=== PATIENT | female | born 1995 | race African-American/Black ===

== ENCOUNTER 2016-09-08 21:43 | Emergency (ER) ==
[2016-09-08] MEDS ORDERED: BENADRYL ONE (21:59)
[2016-09-08] MEDS ORDERED: DECADRON IV ONE (22:16)
[2016-09-08] MEDS ORDERED: BENADRYL IV ONE (22:16)
[2016-09-08] MEDS ORDERED: SODIUM CHLORIDE 0.9% INJ ONE (22:16)
[2016-09-08] MEDS ORDERED: PEPCID IV ONE (22:16)
[2016-09-08] MEDS ORDERED: NS 1,000 ML IV ONE (22:17)
[2016-09-08] MEDS ORDERED: EPINEPHRINE IM ONE (22:17)
--- NOTE | 2016-09-08 22:20 | PROVIDER DOCUMENTATION ---
HPI-Rash/Wound/ReCheck - General Chief Complaint: Allergic Reaction Stated Complaint: ALLERGIC REACTION/RASH Time Seen by Provider: 09/08/16 22:01 Source: patient Allergies/Adverse Reactions: Allergies Allergy/AdvReac Type Severity Reaction Status Date / Time No Known Allergies Allergy Verified 09/08/16 21:52 Home Medications: Home Medication List Medication Instructions Recorded Confirmed Last Taken Type Hydrocortisone 1% Cream 1 applicatn TOP BID #1 tube 06/16/16 Unknown Rx Famotidine [Pepcid] 20 mg PO BID #10 tablet 09/08/16 Unknown Rx Prednisone 20 mg PO BID #10 tablet 09/08/16 Unknown Rx - History of Present Illness-Dermatology Nature of Presenting Problem: PT IS A 20YOF PRESENTING TO THE ED C/O ALLERGIC REACTION. 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 PT DENIES ANY AIRWAY COMPROMISE OR SWELLING AT THIS TIME. UNKNOWN CAUSE OF REACTION Location: reports: generalized Quality: reports: itchy Severity: reports: moderate Onset/Duration: reports: just prior to arrival Timing: reports: still present Context/Associated Symptoms: reports: change in skin texture, hives, rash, other (ITCHING ALL OVER). denies: insect bite/sting, unknown bite/sting, nasal congestion Identifiable cause?: No Exposure: reports: unknown cause Modifying Factors: improves with: scratching Locality of Occurance: Home Similar Symptoms Previously?: No Recently seen or treated by another doctor?: No Review of Systems - Adult - REVIEW OF SYSTEMS - ADULT Constitutional: reports: no symptoms reported Eyes: reports: no symptoms reported Ears, Nose, Mouth & Throat: reports: no symptoms reported Cardiovascular: reports: no symptoms reported Respiratory: reports: no symptoms reported Gastrointestinal: reports: no symptoms reported Genitourinary: reports: no symptoms reported Musculoskeletal: reports: no symptoms reported Integumentary: reports: see HPI, hives, itching, rash. denies: skin thickening Neurological: reports: no symptoms reported Psychiatric: reports: no symptoms reported Endocrine: reports: no symptoms reported Hematologic/Lymphatic: reports: no symptoms reported Allergic/Immunologic: reports: see HPI, allergic reactions, hives, urticaria. denies: frequent infections All Other Systems: Reviewed and Negative Past History - Adult - PAST MEDICAL HISTORY-ADULT Review of Records: reports: Old Records Reviewed, Nursing Assessment Review, Medications Reviewed, Social history reviewed & non-contributory. Major Childhood Illnesses: reports: denies history Cardiovascular: reports: denies history Respiratory: reports: asthma Gastrointestinal: reports: ulcer Obstetrical/Gynecological: reports: denies history Genitourinary: reports: denies history Musculoskeletal: reports: denies history Neurological: reports: denies history Endocrine/Immune: reports: denies history Other Conditions: reports: denies history - PRIOR SURGERIES/PROCEDURES Surgical/Procedure History: reports: none - IMMUNIZATION STATUS Childhood Immunizations: See Nurse Assessment Flu Vaccine: See Nurse Assessment - FAMILY HISTORY Family History: CAD over 55 yo, HTN - SOCIAL HISTORY Smoking: cigar (X2 PER DAY) Provider spent 3-5 mins advising pt. on dangers of tobacco.: Discussed manners to quit use, and f/u contacts for add'l counseling. Substance Use: none/never, denies Alcohol Use Frequency: never Living Situation: family Physical Exam-General - PHYSICAL EXAM-ADULT Initial Vital Signs Reviewed: Yes - CONSTITUTIONAL General Appearance: alert, moderate distress, anxious. negative: appears well, no apparent distress - EYES Eyes: PERRL/EOMI, pink conjunctivae, fundi clear, no AV nicking - HEAD, EARS, NOSE, MOUTH & THROAT HENMT: normocephalic/atraumatic, moist mucous membranes, normal ENT inspection, TMs normal, pharynx normal. negative: angioedema - NECK Neck: non-tender, full range of motion, supple, normal inspection - RESPIRATORY Respiratory: chest non-tender, lungs clear, normal breath sounds, no pleuratic chest pain, no respiratory distress, no accessory muscle use - CARDIOVASCULAR Cardiovascular: normal peripheral pulses, regular rate, rhythm, no edema, no gallop, no JVD, no murmur - GASTROINTESTINAL (ABDOMEN) Abdominal Exam: normal bowel sounds, non tender, soft, no organomegaly, no pulsatile mass. negative: abdominal bruit - LYMPHATIC Lymphatic: no adenopathy - MUSCULOSKELETAL Back Exam: normal inspection, no CVA tenderness, no vertebral tenderness Extremity: normal range of motion, non-tender, normal gait, normal inspection, no pedal edema, no calf tenderness, normal capillary refill, pelvis stable - SKIN Integumentary: normal turgor, warm/dry, erythema, rash, warm. 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, grossly normal, no motor/sensory deficits - PSYCHIATRIC Psych/Mental Status: normal thought content, normal thought process, oriented x 3, anxious Progress - PLAN OF CARE/RESULTS Progress/Plan/Lab Results: Orders Category Date Time Status 0.9% Sodium Chloride Inj [Ns] 1,000 ml Med 09/08/16 22:17 Active IV 999 mls/hr Dexamethasone [Decadron] Med 09/08/16 22:16 Discontinued 10 mg IV NOW ONE Diphenhydramine [Benadryl] Med 09/08/16 21:59 Discontinued 50 mg .ROUTE .STK-MED ONE Diphenhydramine [Benadryl] Med 09/08/16 22:16 Discontinued 50 mg IV NOW ONE Epinephrine Med 09/08/16 22:17 Discontinued 0.3 mg IM NOW ONE Famotidine [Pepcid] Med 09/08/16 22:16 Discontinued 20 mg IV NOW ONE Sodium Chloride 0.9% Med 09/08/16 22:16 Discontinued 5 - 10 ml INJ NOW ONE Vital Signs - 24 hr 09/08/16 21:46 Temperature 97.8 F Pulse Rate 104 H Respiratory 22 Rate Blood Pressure 168/102 O2 Sat by Pulse 100 Oximetry Departure - Departure Time of Disposition Order: 22:20 DIAGNOSIS: Allergic reaction, urticaria Disposition: HOME 01 Certified Medical Emergency: Emergent Condition: Stable Attestation - Scribe Verification/Attestation Scribe:: Lindsay Martínez Acting as Scribe for:: Shahid Parra Scribe documention review:: This chart was documented by a scribe and accurately reflects the service the provider performed and the decisions made by the provider. Physician Attestation - Physician Attestation I, the provider, attest to the following statement:: Shahid Parra Physician documentation Attestation:: This documentation recorded by the scribe accurately reflects the service I personally performed and the decisions made by me.
[2016-09-08 22:53] VITALS: BP 138/92
== END 2016-09-08 22:52 | disposition home or self-care (01) ==
LOC: P.ED 21:43
DX: T78.40XA Allergy, unspecified, initial encounter (principal); L50.9 Urticaria, unspecified; R21 Rash and other nonspecific skin eruption; L29.9 Pruritus, unspecified; R23.4 Changes in skin texture; F17.290 Nicotine dependence, other tobacco product, uncomplicated; Z71.6 Tobacco abuse counseling; Z82.49 Family history of ischemic heart disease and other diseases of the circulatory system
CPT/HCPCS: 96372; 96374; 96375; J0171; J1200; J7030; S0028